=== PATIENT | female | born 1990 | race American Indian/Alaskan Native ===

== ENCOUNTER 2016-12-29 15:38 | Emergency (ER) | payer SELFPAY ==
[2016-12-29 17:13] VITALS: BP 109/62
--- NOTE | 2016-12-29 17:21 | Emergency Department Report ---
Chief Complaint: Abdominal Pain Stated Complaint: 18 WKS PREG ABD PAIN Time Seen by Provider: 12/29/16 17:18 - HPI History of Present Illness: Patient here reports that she is 18 weeks without any related problems. She says she doesn't have [facility] [facility]NA[facility] because her insurance lapse. She says she's been having pelvic pain and pressure that is on and off. Denies any urinary burning frequency or urgency. Denies any vaginal discharge or bleeding. Patient said she had a pelvic exam done at my [facility]GAN[facility]NA[facility] when she was 5 weeks and they did STD testing. Which came back normal and she says she does not know what her blood type is. 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 Denies any nausea or vomiting. - ROS Review of Systems: All systems are negative unless stated in HPI above - Exam Vital Signs: Vital Signs 12/29/16 17:10 Temperature 98.5 F Pulse Rate 86 Respiratory 18 Rate Blood Pressure 109/62 O2 Sat by Pulse 99 Oximetry Physical Exam: Gen.: This is a 26-year-old female well-nourished well-developed in no acute distress. Abdomen:Protruding., soft, nontender to palpation in all quadrants. No guarding or rebound tenderness. MSE screening note: Focused history and physical exam performed. Due to findings the following was ordered: ED Medical Decision Making - Medical Decision Making MDM: Patient screened by provider in triage area. Appropriate protocol initiated and patient to be seen in main ED by ED Disposition for MSE Condition: Stable Instructions: Abdominal Pain (ED)
[2016-12-29 18:33] LABS: Bilirubin,Urine NEG (Negative); Blood,Urine NEG (Negative); Ketones,Urine NEG (Negative); Leukocyte Esterase,Urine SM (Negative); Mucus,Urine FEW /HPF; Nitrite,Urine NEG (Negative); Protein,Urine <15 mg/dL mg/dL (Negative)
--- NOTE | 2016-12-29 20:29 | Ultrasound Report ---
FINAL REPORT PROCEDURE: US OB \T\gt; = 14 WEEKS FETUS TECHNIQUE: Real-time transabdominal sonography of the uterus, placenta, amniotic fluid, adnexa, and fetus was performed with image documentation. Measurements were obtained to determine age/size. M-mode Doppler was used to document heartbeat. CPT 63784 HISTORY: abd pain COMPARISON: No prior studies are available for comparison. FINDINGS: ADDITIONAL GESTATION: None. GENERAL: IUP: Single living intrauterine . Position: Cephalic Placental position: Posterior, without previa. Amniotic fluid volume: Normal. MATERNAL: Uterus: Within normal limits. Cervical length: 2.8 cm. Internal Os: Closed. FETUS: Heart rate and rhythm: 156 beats per minute anatomic survey: Normal. MEASUREMENTS: BPD: 3.83 centimeters correspond is 17 weeks and 5 days HC: 14.48 centimeters correspond is 17 weeks and 5 days AC: 11.36 centimeters correspond is 17 weeks and 1 day FL: 2.3 centimeters correspond is 16 weeks and 6 days Mean Gestational Age (composite criteria): 17 weeks and 3 days Ratio biometry: Normal. Estimated Weight: 182 grams. Interval growth: Appropriate. Estimated Due Date (earliest scan): 06/05/2017 IMPRESSION: Single intrauterine gestation at 17 weeks and 3 days. Estimated due date: 06/05/2017. Normal survey with appropriate growth.
== END 2016-12-29 19:00 | disposition left against medical advice (07) ==
LOC: ED 15:38
DX: O26.892 Other specified pregnancy related conditions, second trimester (principal); R10.9 Unspecified abdominal pain; Z3A.18 18 weeks gestation of pregnancy; Z53.21 Procedure and treatment not carried out due to patient leaving prior to being seen by health care provider
CPT/HCPCS: 76805; 81001

== ENCOUNTER 2017-03-21 15:56 | Outpatient (CLI) | payer MEDICAID ==
[2017-03-21] MEDS ORDERED: LACTATED RINGERS 500 ML IV ONE (16:33)
[2017-03-21 16:45] VITALS: BP 101/61
[2017-03-21 17:03] LABS: Bacteria,Urine 1+ /HPF (Negative); Bilirubin,Urine NEG (Negative); Blood,Urine NEG (Negative); Color,Urine Yellow (Yellow); Mucus,Urine FEW /HPF; Nitrite,Urine NEG (Negative); Protein,Urine <15 mg/dL mg/dL (Negative); Urobilinogen,Urine < 2.0 mg/dL (<2.0)
[2017-03-21 17:16] LABS: Amphetamine Screen,Urine PRESUMPTIVE NEGATIVE; Benzodiazepines Screen,Urine PRESUMPTIVE NEGATIVE; Cocaine Screen,Urine PRESUMPTIVE NEGATIVE; Methadone Screen,Urine PRESUMPTIVE NEGATIVE; Opiate Screen,Urine PRESUMPTIVE NEGATIVE
[2017-03-21 17:29] LABS: Cannabinoid Screen,Urine PRESUMPTIVE POSITIVE
[2017-03-21] MEDS ORDERED: BRETHINE SUB-Q ONE (18:53)
[2017-03-21] MEDS ORDERED: BRETHINE ONE (18:54)
== END 2017-03-21 20:14 | disposition home or self-care (01) ==
LOC: TRG 15:56
PROVIDERS: ATTEND Obstetrics & Gynecology
DX: O47.03 False labor before 37 completed weeks of gestation, third trimester (principal); Z79.899 Other long term (current) drug therapy; Z3A.29 29 weeks gestation of pregnancy
CPT/HCPCS: 80307; 81001; J3105; J7120; 96372

== ENCOUNTER 2017-04-10 21:31 | Outpatient (CLI) | payer MEDICAID ==
[2017-04-10] MEDS ORDERED: LACTATED RINGERS 1,000 ML IV ONE (21:44)
[2017-04-10 21:56] VITALS: BP 108/63
[2017-04-10 22:22] LABS: Amorphous Crystals,Urine Few; Bilirubin,Urine NEG (Negative); Blood,Urine NEG (Negative); Color,Urine Yellow (Yellow); Mucus,Urine FEW /HPF; Nitrite,Urine NEG (Negative); Protein,Urine <15 mg/dL mg/dL (Negative); Urobilinogen,Urine < 2.0 mg/dL (<2.0)
[2017-04-10] MEDS ORDERED: BRETHINE SUB-Q PRN (22:38)
[2017-04-10] MEDS ORDERED: BRETHINE ONE (22:43)
== END 2017-04-10 23:20 | disposition home or self-care (01) ==
LOC: TRG 21:31
PROVIDERS: ATTEND Obstetrics & Gynecology
DX: O47.03 False labor before 37 completed weeks of gestation, third trimester (principal); Z3A.31 31 weeks gestation of pregnancy
CPT/HCPCS: 59025; 81001; 96360; 96372; J3105; J7120

== ENCOUNTER 2017-04-19 14:57 | Outpatient (CLI) | payer MEDICAID ==
[2017-04-19] MEDS ORDERED: LACTATED RINGERS 500 ML IV ONE (15:01)
[2017-04-19 15:23] VITALS: BP 107/65
[2017-04-19 15:57] LABS: Bilirubin,Urine NEG (Negative); Blood,Urine NEG (Negative); Color,Urine Yellow (Yellow); Nitrite,Urine NEG (Negative); Protein,Urine <15 mg/dL mg/dL (Negative)
[2017-04-19] MEDS ORDERED: TYLENOL PO ONE (16:00)
== END 2017-04-19 17:00 | disposition home or self-care (01) ==
LOC: TRG 14:57
PROVIDERS: ATTEND Obstetrics & Gynecology
DX: O47.03 False labor before 37 completed weeks of gestation, third trimester (principal); Z3A.33 33 weeks gestation of pregnancy
CPT/HCPCS: 59025; 81001

== ENCOUNTER 2017-04-27 14:03 | Outpatient (CLI) | payer MEDICAID ==
[2017-04-27 14:36] VITALS: BP 119/60
[2017-04-27] MEDS ORDERED: LACTATED RINGERS 500 ML IV ONE (14:39)
[2017-04-27] MEDS ORDERED: BRETHINE ONE (15:02)
[2017-04-27 15:14] LABS: Bacteria,Urine 1+ /HPF (Negative); Bilirubin,Urine NEG (Negative); Blood,Urine NEG (Negative); Color,Urine Yellow (Yellow); Mucus,Urine FEW /HPF; Nitrite,Urine NEG (Negative); Protein,Urine <15 mg/dL mg/dL (Negative)
[2017-04-27] MEDS ORDERED: ROCEPHIN/NS 1 GM/50 ML 1 GM/50 ML BAG IV ONE (15:58)
[2017-04-27] MEDS ORDERED: TYLENOL PO ONE (16:01)
[2017-04-27] MEDS ORDERED: cefTRIAXone 1 GM in NACL 0.9% 20 ML IV NR (16:15)
[2017-04-27] MEDS ORDERED: BRETHINE SUB-Q ONE (16:31)
== END 2017-04-27 16:35 | disposition home or self-care (01) ==
LOC: TRG 14:03
PROVIDERS: ATTEND Obstetrics & Gynecology
DX: O47.03 False labor before 37 completed weeks of gestation, third trimester (principal); Z3A.34 34 weeks gestation of pregnancy
CPT/HCPCS: 59025; 81001; 96360; 96372; J0696; J3105; J7120

== ENCOUNTER 2017-05-04 20:06 | Outpatient (CLI) | payer MEDICAID ==
[2017-05-04] MEDS ORDERED: LACTATED RINGERS 1,000 ML IV ONE (20:20)
[2017-05-04 21:25] LABS: Bacteria,Urine 1+ /HPF (Negative); Bilirubin,Urine NEG (Negative); Blood,Urine NEG (Negative); Color,Urine Yellow (Yellow); Nitrite,Urine NEG (Negative); Protein,Urine <15 mg/dL mg/dL (Negative); WBC,Urine < 1.0 /HPF (0.0-6.0)
[2017-05-04] MEDS ORDERED: BRETHINE SUB-Q ONE (22:50)
[2017-05-04 23:50] VITALS: BP 117/57
== END 2017-05-05 00:20 | disposition other institution (70) ==
LOC: TRG 20:06
PROVIDERS: ATTEND Obstetrics & Gynecology
DX: O62.9 Abnormality of forces of labor, unspecified (principal); Z3A.35 35 weeks gestation of pregnancy
CPT/HCPCS: 59025; 81001; 96360; 96361; 96372; J3105; J7120

== ENCOUNTER 2017-05-06 15:57 | Outpatient (CLI) | payer MEDICAID ==
[2017-05-06 16:44] VITALS: BP 127/66
[2017-05-06] MEDS ORDERED: LACTATED RINGERS 500 ML IV ONE (16:46)
== END 2017-05-06 17:30 | disposition home or self-care (01) ==
LOC: TRG 15:57
PROVIDERS: ATTEND Obstetrics & Gynecology
DX: O47.03 False labor before 37 completed weeks of gestation, third trimester (principal); Z3A.35 35 weeks gestation of pregnancy
CPT/HCPCS: 59025

== ENCOUNTER 2017-05-10 02:59 | Outpatient (CLI) | payer MEDICAID ==
[2017-05-10 03:23] VITALS: BP 116/64
[2017-05-10] MEDS ORDERED: LACTATED RINGERS 500 ML IV ONE (04:05)
== END 2017-05-10 04:10 | disposition home or self-care (01) ==
LOC: TRG 02:59
PROVIDERS: ATTEND Obstetrics & Gynecology
DX: O62.9 Abnormality of forces of labor, unspecified (principal); Z3A.36 36 weeks gestation of pregnancy
CPT/HCPCS: 59025; J7120

== ENCOUNTER 2017-05-12 10:51 | Outpatient (CLI) | payer MEDICAID ==
[2017-05-12] MEDS ORDERED: LACTATED RINGERS 1,000 ML ONE (11:31)
[2017-05-12] MEDS ORDERED: LACTATED RINGERS 1,000 ML IV ONE (12:30)
[2017-05-12 12:51] LABS: Bacteria,Urine 1+ /HPF (Negative); Mucus,Urine FEW /HPF
[2017-05-12 13:07] VITALS: BP 121/67
[2017-05-12 13:16] LABS: Bilirubin,Urine NEG (Negative); Blood,Urine NEG (Negative); Color,Urine Red (Yellow); Protein,Urine <15 mg/dL mg/dL (Negative); Urobilinogen,Urine < 2.0 mg/dL (<2.0)
== END 2017-05-12 13:13 | disposition home or self-care (01) ==
LOC: TRG 10:51
PROVIDERS: ATTEND Obstetrics & Gynecology
DX: O47.03 False labor before 37 completed weeks of gestation, third trimester (principal); Z3A.36 36 weeks gestation of pregnancy
CPT/HCPCS: 59025; 81001; 96360; 96361; J7120

== ENCOUNTER 2017-05-18 14:14 | Outpatient (CLI) | payer MEDICAID ==
[2017-05-18 14:42] VITALS: BP 118/63
== END 2017-05-18 15:40 | disposition home or self-care (01) ==
LOC: TRG 14:14
PROVIDERS: ATTEND Obstetrics & Gynecology
DX: O47.1 False labor at or after 37 completed weeks of gestation (principal); Z3A.37 37 weeks gestation of pregnancy
CPT/HCPCS: 59025

== ENCOUNTER 2017-05-22 11:43 | Inpatient (IN) | payer MEDICAID ==
[2017-05-22] MEDS ORDERED: MINERAL OIL PO PRN (11:48)
[2017-05-22] MEDS ORDERED: XYLOCAINE 2% INFILTRATI ONE (11:48)
[2017-05-22] MEDS ORDERED: BRETHINE SUB-Q PRN (11:48)
[2017-05-22] MEDS ORDERED: ZOFRAN IV PRN (11:48)
[2017-05-22] MEDS ORDERED: ePHEDrine SULFATE IV PRN (11:48)
--- NOTE | 2017-05-22 11:48 | History and Physical Report ---
History of Present Illness Date of examination: 05/22/17 Date of admission: 05/22/17 11:43 Chief complaint: regular ctx, SVE 90/-[address] Carter in office History of present illness: EDC Confirmation: 06/06/2017 Past History : 4 Term Births: 1 Living Children: 1 Para: 1 Aborta: 2 Spont. Ab: 2 # 1 Hours of labor: 5 # 2 Delivery date: 10/14/2014 Delivery type: SAB # 3 Delivery date: 10/15/2015 Delivery type: SAB Past Medical History: Reviewed history from 04/11/2009 and no changes required: Negative Past Medical History Past Surgical History: Reviewed history from 04/11/2009 and no changes required: negative Past Medical History Anesthesia Complications: negative Anemia: negative Autoimmune Disorder: negative Bleeding Disorder: negative Blood Transfusions: negative Breast Disease: negative Diabetes: negative Heart Disease: negative Hypertension: negative Hepatitis/Liver Disease: negative Kidney Disease/UTI: negative Neurologic/Epilepsy/Migraines: negative Phlebitis/Varicosities: negative Psychiatric: negative Pulmonary Disease/Asthma: negative Thyroid Disease: negative Hospitalizations: negative Surgery (Non-printer operator): negative Social Hx: Patient is single, non smoker Infection History Hx of STD: chlamydia HIV Risk Eval: low risk Hepatitis B Risk Eval: low risk Personal hx. of genital herpes: no Partner hx. of genital herpes: no Varicella/Chicken Pox Status: Previous Disease TB Risk: no Genetic History Congenital Heart Defect: Mom: no Dad: no Sandra Disease: Mom: no Dad: no Thalassemia Mom: no Dad: no Neural Tube Defect Mom: no Dad: no Down's Syndrome Mom: no Dad: no Zachary-Sachs Mom: no Dad: no Sickle Cell Disease/Trait Mom: no Dad: no Hemophilia Mom: no Dad: no Muscular Dystrophy Mom: no Dad: no Cystic Fibrosis Mom: no Dad: no Abdi Chorea Mom: no Dad: no Mental Retardation Mom: no Dad: no Fragile X Mom: no Dad: no Other Genetic/Chromosomal Disorder Mom: no Dad: no Child w/other defect Mom: no Dad: no Enviromental Exposures Xray Exposure: no Medication, drug, or alcohol use since LMP: no Chemical/Other Exposure: no Exposure to Cat Liter: no Hx of Parvovirus (Fifth Disease): no Active Medications (reviewed today): DEPO-PROVERA 150 MG/ML IM SUSP (MEDROXYPROGESTERONE ACETATE) 1 inj x every 12 weeks Current Allergies (reviewed today): * BENDARYL (Critical) Past History Past Medical History: no pertinent history Past Surgical History: no surgical history - Obstetrical History Expected Date of Delivery: 06/06/17 Actual Gestation: 37 Week(s) 6 Day(s) : 4 Para: 1 Hx # Term Pregnancies: 1 Number of Pregnancies: 0 Spontaneous Abortions: 2 Induced : 0 Number of Living Children: 1 Medications and Allergies Allergies Allergy/AdvReac Type Severity Reaction Status Date / Time diphenhydramine HCl Allergy Hives Verified 05/18/17 15:33 [From Benadryl] Home Medications Medication Instructions Recorded Confirmed Last Taken Type Pnv No.95/Ferrous Fum/Folic AC 1 tab PO DAILY 05/12/17 05/18/17 Unknown History [ Vitamins Tablet] Review of Systems All systems: negative - Physical Exam Breasts: Positive: normal Cardiovascular: Regular rate Lungs: Positive: Clear to auscultation, Normal air movement Abdomen: Positive: normal appearance, soft Genitourinary (Female): Positive: normal external genitalia, normal perenium Vagina: Positive: normal moisture Uterus: Positive: normal size, normal contour Anus/Rectum: Positive: normal perianal skin Extremities: Positive: normal Results All other labs normal. Patient: LEE DEVRIES ID: [id number] Note: All result statuses are Final unless otherwise noted. Tests: (1) Chlamydia/GC Amplification ([id number]) Order Note: Clinical Information: SRC:VR SRC:UR Chlamydia trachomatis, URIEL Negative Negative *1 Neisseria gonorrhoeae, URIEL Negative Negative *2 Tests: (2) Strep Gp B URIEL ([id number]) ! Strep Gp B URIEL Negative Negative Tests: (1) Profile I ([id number]) Order Note: Clinical Information: CCU:[id number] LM HBsAg Screen Negative Negative *1 RPR Non Reactive Non Reactive *2 Rubella Antibodies, IgG 3.18 index Immune >0.99 *3 Non-immune <0.90 Equivocal 0.90 - 0.99 Immune >0.99 ABO Grouping O *4 Rh Factor Positive *5 Please note: Prior records for this patient's ABO / Rh type are not available for additional verification. Antibody Screen Negative Negative *6 WBC 10.5 x10E3/uL 3.4-10.8 *7 RBC [L] 3.41 x10E6/uL 3.77-5.28 *8 Hemoglobin 11.1 g/dL 11.1-15.9 *9 Hematocrit [L] 32.2 % 34.0-46.6 *10 MCV 94 fL 79-97 *11 MCH 32.6 pg 26.6-33.0 *12 MCHC 34.5 g/dL 31.5-35.7 *13 RDW 12.8 % 12.3-15.4 *14 Platelets 260 x10E3/uL 150-379 *15 Neutrophils 77 % Not Estab. *16 Lymphs 15 % Not Estab. *17 Monocytes 6 % Not Estab. *18 Eos 1 % Not Estab. *19 Basos 0 % Not Estab. *20 ! Immature Cells <No Reported Value> *21 Neutrophils (Absolute) [H] 8.1 x10E3/uL 1.4-7.0 *22 Lymphs (Absolute) 1.6 x10E3/uL 0.7-3.1 *23 Monocytes(Absolute) 0.6 x10E3/uL 0.1-0.9 *24 Eos (Absolute) 0.1 x10E3/uL 0.0-0.4 *25 Baso (Absolute) 0.0 x10E3/uL 0.0-0.2 *26 ! Immature Granulocytes 1 % Not Estab. *27 ! Immature Grans (Abs) 0.1 x10E3/uL 0.0-0.1 *28 ! NRBC <No Reported Value> *29 Hematology Comments: <No Reported Value> *30 Tests: (2) 932045 7+Alc-Unbund (529966) ! Amphetamines, Urine Negative ng/mL Jkopha=0372 *31 Amphetamine test includes Amphetamine and Methamphetamine. Barbiturate Negative ng/mL Nqoscl=474 *32 Benzodiazepines Negative ng/mL Hssnej=397 *33 Cannabinoid See Final Results ng/mL Cutoff=50 *34 Tests: (3) Cannabinoid Confirmation, Ur ([id number]) ! Cannabinoid [A] Positive Cutoff=50 *35 ! Carboxy THC GC/MS Conf >300 ng/mL Cutoff=15 *36 Tests: (4) 373692 7+Alc-Unbund (676789) ! Cocaine (Metab.) Negative ng/mL Bivbpl=686 *37 Opiates Negative ng/mL Vkdljd=673 *38 Opiate test includes Codeine and Morphine only. Phencyclidine Negative ng/mL Cutoff=25 *39 ! Ethanol U, Julius Negative % Cutoff=0.020 *40 Tests: (5) HB Solu + Rflx Fra (723251) Hemoglobin (Hgb) Solubility Negative Negative *41 Tests: (6) Panel 751424 (913313) HIV Screen 4th Generation wRfx Non Reactive Non Reactive *42 Tests: (7) HCV Ab w/Rflx to Verification (891255) ! HCV Ab <0.1 s/co ratio 0.0-0.9 *43 Tests: (8) Comment: (733975) ! Comment: SPRCS *44 Non reactive HCV antibody screen is consistent with no HCV infection, unless recent infection is suspected or other evidence exists to indicate HCV infection. Tests: (9) Urine Culture, Routine (271093) Urine Culture, Routine Final report *45 Tests: (10) Result ([id number]) ! Result 1 No growth *46 Assessment and Plan 26y/o sent from office in active labor @37+6 weeks. GBS neg. Admission orders in EMR. Anticpate . - Patient Problems (1) Active labor at term Current Visit: Yes Status: Acute (2) 37 weeks gestation of Current Visit: Yes Status: Acute
[2017-05-22] MEDS ORDERED: NORMOSOL-R PH 7.4 1,000 ML IV SCH (12:00)
[2017-05-22] MEDS ORDERED: PITOCin/NS 20 UNIT/1000ML DRIP 20 UNITS/1,000 ML BAG IV SCH ×2 (12:00→18:02)
[2017-05-22] MEDS: SUBLIMAZE IV PRN ×2 (12:09→14:33)
[2017-05-22 12:12] LABS: Hematocrit 29.4 % (30.3-42.9); Hemoglobin 9.5 gm/dl (10.1-14.3); Mean Corpuscular HGB Conc 32 % (30-34); Mean Corpuscular Hemoglobin 27 pg (28-32); Mean Corpuscular Volume 84 fl (79-97); Platelet Count 370 K/mm3 (140-440); Red Blood Count 3.52 M/mm3 (3.65-5.03); Red Cell Distribution Width 14.9 % (13.2-15.2)
[2017-05-22] MEDS ORDERED: PITOCin/NS 30 UNIT/500ML 30 UNITS/500 ML BAG IV SCH (15:00)
--- NOTE | 2017-05-22 15:35 | Procedure Note ---
OB Delivery Note - Delivery Date of Delivery: 05/22/17 ( female) Model Artists': TERENCE LEE Estimated blood loss: 200cc - Vaginal Delivery presentation: vertex Delivery position: OA Intrapartum events: none Delivery induction: none Delivery augmentation: rupture of membranes, pitocin Delivery monitor: external FHT, external uterine Route of delivery: Delivery placenta: spontaneous Delivery cord: 3 umbilical vessels Episiotomy: none Delivery laceration: none Anesthesia: none Delivery comments: Female del over intact perineum LEANDRO, infant placed skin to skin on mother's abd. 3 vessel cord clamped and cut. cord blood collected. placenta del intact and complete. no lacerations noted, small hematoma (1.5cm x 1.5cm) noted on left side of vagina - does not appear to be increasing in size. EBL 200, apgars 8/9, wt 6#7oz. Mother and infant remain LDR stable. - Infant A at 1 minute: 8 at 5 minutes: 9 Infant Gender: Female (6#7oz)
[2017-05-22] MEDS ORDERED: TYLENOL PO PRN (18:02)
[2017-05-22] MEDS ORDERED: DULCOLAX PR PRN (18:02)
[2017-05-22] MEDS ORDERED: BENADRYL PO PRN (18:02)
[2017-05-22] MEDS ORDERED: TUCKS PAD TP PRN (18:02)
[2017-05-22] MEDS ORDERED: LANSINOH TP PRN (18:02)
[2017-05-22] MEDS ORDERED: DERMOPLAST TP PRN (18:02)
[2017-05-22] MEDS ORDERED: MILK OF MAGNESIA PO PRN (18:02)
[2017-05-22] MEDS ORDERED: PHENERGAN PO PRN (18:02)
[2017-05-22] MEDS ORDERED: SODIUM CHLORIDE FLUSH SYRINGE 10 ML IV SCH (18:02)
[2017-05-22] MEDS: MOTRIN PO SCH ×2 (18:35→23:11)
[2017-05-22] MEDS: FEOSOL PO SCH (21:19)
[2017-05-23 04:36] LABS: Hematocrit 24.6 % (30.3-42.9); Hemoglobin 7.7 gm/dl (10.1-14.3)
[2017-05-23] MEDS: MOTRIN PO SCH ×2 (05:30→11:34)
[2017-05-23] MEDS ORDERED: BOOSTRIX IM ONE (06:00)
[2017-05-23] MEDS ORDERED: DEPO-PROVERA (CONTRACEPTION) IM ONE ×2 (08:00→18:00)
--- NOTE | 2017-05-23 08:02 | Discharge Summary ---
Providers - Providers Date of Admission: 05/22/17 11:43 Date of discharge: 05/23/17 (pt desires d/c) Attending physician: ELLEN SHELBY 05/22/17 18:02 Consult to Health Commissioner [CONS] Routine Reason For Exam: assistance with , SNS Primary care physician: KEIRY JOSEPH Hospitalization Reason for admission: active labor Delivery: Episiotomy: none Laceration: none Incision: normal Other procedures: none complications: none Discharge diagnosis: IUP at term delivered [place] baby: female Hospital course: uncomplicated vaginal delivery pt w/o complaint Asking to be discharged. VSS FF below umb Lochia small perineum swollen intact H&H 10/06 drop r/t blood loss with delivery Pt is w/o s/ sx of anemia Doing well s/p vag delivery; anemia. P: d/c today with rx po iron, colace, motrin. Pt desires depo for b/c order in EMR Condition at discharge: Good Disposition: DC-01 TO HOME OR SELFCARE - Discharge Diagnoses (1) (normal spontaneous vaginal delivery) Status: Acute Comment: RTO 4 weeks for PP care Plan - Discharge Medications Prescriptions: Docusate Sodium [Colace] 100 mg PO BID PRN #60 capsule PRN Reason: Constipation Ferrous Sulfate [Feosol 325 MG tab] 325 mg PO BID #60 tablet Ibuprofen [Motrin 800 MG tab] 800 mg PO TID PRN #30 tablet PRN Reason: Pain - Provider Discharge Summary Activity: routine, no sex for 6 weeks, no heavy lifting 4 weeks, no strenuous exercise Diet: routine Instructions: routine Additional instructions: [] Smoking cessation referral if applicable(refer to patient education folder for contact #) [] Refer to [facility] Booklet Call your doctor immediately for: * Fever > 100.5 * Heavy vaginal bleeding ( >1 pad per hour) * Severe persistent headache * Shortness of breath * Reddened, hot, painful area to leg or breast * Drainage or odor from incision. * Keep incision clean and dry at all times and follow doctor's instructions regarding bathing/showering - Follow up plan Follow up: KEIYR JOSEPH MD [Primary Care Provider] - 06/22/17 (Congratulations! Please call [phone] to schedule your visit in 4 weeks. Take medications as prescribed. Call with any concerns.)
[2017-05-23] MEDS ORDERED: PRENATAL VITAMIN PO SCH (10:00)
[2017-05-23] MEDS: FEOSOL PO SCH (11:34)
[2017-05-23 17:17] VITALS: BP 110/68
== END 2017-05-23 18:15 | disposition home or self-care (01) | DRG 775 ==
LOC: LD 11:43 → OB 16:56
PROVIDERS: ADMIT Obstetrics & Gynecology; ATTEND Obstetrics & Gynecology
PROC: 10E0XZZ Delivery of Products of Conception, External Approach (ICD-10-PCS; principal; 2017-05-22)
DX: O99.02 Anemia complicating childbirth (principal); Z3A.37 37 weeks gestation of pregnancy; Z37.0 Single live birth; D64.9 Anemia, unspecified; P15.5 Birth injury to external genitalia; O71.7 Obstetric hematoma of pelvis
CPT/HCPCS: 36415; 85014; 85018; 85027; 86592; 86850; 86900; 86901; 90471; 90715; 99211; G0463; J1050; J2590; J3010

== ENCOUNTER 2019-01-13 18:58 | Emergency (ER) | payer MEDICAID ==
--- NOTE | 2019-01-13 19:16 | Emergency Department Report ---
Blank Doc - Documentation Documentation: 28-year-old female that presents with pelvic pain and back pain. Denies any v aginal discharge. Stated has some breast tenderness. Denies n/v. This initial assessment/diagnostic orders/clinical plan/treatment(s) is/are subject to change based on patient's health status, clinical progression and re- assessment by fellow clinical providers in the ED. Further treatment and workup at subsequent clinical providers discretion. Patient/guardians urged not to elope from the ED as their condition may be serious if not clinically assessed and managed. Initial orders include: 1- Patient sent to [facility] for further evaluation and treatment 2- UA
[2019-01-13 19:18] VITALS: BP 115/78
[2019-01-13 20:30] LABS: Bacteria,Urine 1+ /HPF (Negative); Bilirubin,Urine NEG (Negative); Blood,Urine NEG (Negative); Color,Urine Yellow (Yellow); Protein,Urine <15 mg/dL mg/dL (Negative); WBC,Urine < 1.0 /HPF (0.0-6.0)
[2019-01-13 20:42] LABS: HCG Qualitative,Urine Negative (Negative)
--- NOTE | 2019-01-13 20:44 | Emergency Department Report ---
ED Abdominal Pain HPI - General Chief Complaint: Abdominal Pain Stated Complaint: LOWER ABD PAIN Time Seen by Provider: 01/13/19 19:15 Source: patient Mode of arrival: Ambulatory Limitations: No Limitations - History of Present Illness Initial Comments: Ms. Otto is a 28-year-old female that presents with pelvic pain and back pain x 4 days. Denies any vaginal discharge. LMP 5 weeks ago. Stated has some breast tenderness. Denies n/v. MD Complaint: abdominal pain Onset/Timin -: days(s) Location: suprapubic Radiation: suprapubic Migration to: suprapubic Severity: moderate Severity scale (0 -10): 4 Quality: cramping, aching Consistency: constant Improves With: nothing Worsens With: nothing Associated Symptoms: denies: nausea, vomiting, diarrhea, chills, dysuria - Related Data LMP (females 10-50): 3 weeks Home Medications Medication Instructions Recorded Confirmed Last Taken Pnv No.95/Ferrous Fum/Folic AC 1 tab PO DAILY 05/12/17 05/22/17 05/21/17 [ Vitamins Tablet] Previous Rx's Medication Instructions Recorded Last Taken Type Docusate Sodium [Colace] 100 mg PO BID PRN #60 capsule 05/23/17 Unknown Rx Ferrous Sulfate [Feosol 325 MG tab] 325 mg PO BID #60 tablet 05/23/17 Unknown Rx Ibuprofen [Motrin 800 MG tab] 800 mg PO TID PRN #30 tablet 05/23/17 Unknown Rx Ibuprofen [Motrin 800 MG tab] 800 mg PO Q8HR PRN #30 tablet 01/13/19 Unknown Rx Allergies Allergy/AdvReac Type Severity Reaction Status Date / Time diphenhydramine HCl Allergy Hives Verified 05/18/17 15:33 [From Benadryl] ED Review of Systems ROS: Stated complaint: LOWER ABD PAIN Other details as noted in HPI Constitutional: denies: chills, fever Eyes: denies: eye pain, eye discharge, vision change ENT: denies: ear pain, throat pain Respiratory: denies: cough, shortness of breath, wheezing Cardiovascular: denies: chest pain, palpitations Endocrine: no symptoms reported Gastrointestinal: abdominal pain (superpubic ). denies: nausea, vomiting, diarrhea Genitourinary: denies: urgency, dysuria, frequency, hematuria, discharge, dyspareunia Musculoskeletal: denies: back pain (bilat flank), joint swelling, arthralgia Skin: denies: rash, lesions Neurological: denies: headache, weakness, paresthesias Psychiatric: denies: anxiety, depression Hematological/Lymphatic: denies: easy bleeding, easy bruising ED Past Medical Hx - Past Medical History Previous Medical History?: No Hx Hypertension: No Hx Congestive Heart Failure: No Hx Diabetes: No Hx Deep Vein Thrombosis: No Hx Renal Disease: No Hx Sickle Cell Disease: No Hx Seizures: No Hx Asthma: No Hx COPD: No Hx HIV: No Additional medical history: bartholin cyst - Surgical History Past Surgical History?: No - Social History Smoking Status: Never Smoker Substance Use Type: None - Medications Home Medications: Home Medications Medication Instructions Recorded Confirmed Last Taken Type Pnv No.95/Ferrous Fum/Folic AC 1 tab PO DAILY 05/12/17 05/22/17 05/21/17 History [ Vitamins Tablet] Docusate Sodium [Colace] 100 mg PO BID PRN #60 capsule 05/23/17 Unknown Rx Ferrous Sulfate [Feosol 325 MG tab] 325 mg PO BID #60 tablet 05/23/17 Unknown Rx Ibuprofen [Motrin 800 MG tab] 800 mg PO TID PRN #30 tablet 05/23/17 Unknown Rx Ibuprofen [Motrin 800 MG tab] 800 mg PO Q8HR PRN #30 tablet 01/13/19 Unknown Rx ED Physical Exam - General Limitations: No Limitations General appearance: alert, in no apparent distress - Head Head exam: Present: atraumatic, normocephalic - Eye Eye exam: Present: normal appearance, PERRL, EOMI Pupils: Present: normal accommodation - ENT ENT exam: Present: mucous membranes moist - Neck Neck exam: Present: normal inspection, full ROM. Absent: tenderness - Respiratory Respiratory exam: Present: normal lung sounds bilaterally. Absent: respiratory distress, wheezes, stridor, chest wall tenderness - Cardiovascular Cardiovascular Exam: Present: regular rate, normal rhythm, normal heart sounds. Absent: systolic murmur, diastolic murmur, rubs, gallop - GI/Abdominal GI/Abdominal exam: Present: soft, normal bowel sounds. Absent: distended, tenderness, guarding, rebound, rigid, bruit, hernia - Rectal Rectal exam: Absent: deferred - Extremities Exam Extremities exam: Present: normal inspection - Back Exam Back exam: Present: normal inspection, full ROM. Absent: tenderness, CVA tenderness (R), CVA tenderness (L), vertebral tenderness - Neurological Exam Neurological exam: Present: alert, oriented X3, CN II-XII intact, normal gait - Psychiatric Psychiatric exam: Present: normal affect, normal mood - Skin Skin exam: Present: warm, dry, intact, normal color. Absent: rash ED Course Vital Signs 01/13/19 19:17 Temperature 98.7 F Pulse Rate 93 H Respiratory 16 Rate Blood Pressure 115/78 O2 Sat by Pulse 100 Oximetry ED Medical Decision Making - Lab Data Labs 01/13/19 Unknown Urine Color Yellow Urine Turbidity Clear Urine pH 7.0 Ur Specific [place] 1.017 Urine Protein <15 mg/dl Urine Glucose (UA) Neg Urine Ketones Neg Urine Blood Neg Urine Nitrite Neg Urine Bilirubin Neg Urine Urobilinogen 2.0 Ur Leukocyte Esterase Neg Urine WBC (Auto) < 1.0 Urine RBC (Auto) 1.0 U Epithel Cells (Auto) 4.0 Urine Bacteria (Auto) 1+ Urine HCG, Qual Negative - Medical Decision Making ua: mild bacteria, hcg: neg, plan dc to home with rx for ibuprofen pt will follow up with METAL DRESSER in 2-3 days. pt declines GC/Ch cultures or wet prep. States no concern for STI, pt advised to follow up with Technical Associate leo. d/c to home in stable condition. Critical care attestation.: If time is entered above; I have spent that time in minutes in the direct care of this critically ill patient, excluding procedure time. ED Disposition Clinical Impression: Abdominal pain, suprapubic Disposition: DC-01 TO HOME OR SELFCARE Is pt being admited?: No Does the pt Need Aspirin: No Condition: Stable Instructions: Abdominal Pain (ED) Prescriptions: Ibuprofen [Motrin 800 MG tab] 800 mg PO Q8HR PRN #30 tablet PRN Reason: pain Referrals: PRIMARY CARE,MD [Primary Care Provider] - 3-5 Days Forms: Work/School Release Form(ED) Time of Disposition: 21:06
[2019-01-13] MEDS ORDERED: traMADol 50 MG TAB PO ONE (20:55)
== END 2019-01-13 21:22 | disposition home or self-care (01) ==
LOC: ED 18:58
DX: R10.30 Lower abdominal pain, unspecified (principal)
CPT/HCPCS: 81001; 81025